=== PATIENT | female | born 1970 | race Asian ===

== ENCOUNTER → 2016-11-15 | Outpatient (CLI) | payer OTHER | LOC: FIMAGING 07:41 | PROVIDERS: ATTEND Obstetrics & Gynecology | DX: D25.2 Subserosal leiomyoma of uterus (principal) ==

== ENCOUNTER → 2017-07-05 | Outpatient (CLI) | payer OTHER | LOC: FIMAGING 12:38 | PROVIDERS: ATTEND Internal Medicine | DX: Z12.31 Encounter for screening mammogram for malignant neoplasm of breast (principal) | CPT/HCPCS: G0202 ==

== ENCOUNTER → 2017-07-07 | Outpatient (CLI) | payer OTHER | LOC: FIMAGING 10:13 | PROVIDERS: ATTEND Internal Medicine | DX: B18.1 Chronic viral hepatitis B without delta-agent (principal) ==

== ENCOUNTER → 2017-09-18 | Outpatient (CLI) | payer OTHER | LOC: BMCIMAGING 10:42 | PROVIDERS: ATTEND Orthopaedic Surgery Hand Surgery | DX: M19.042 Primary osteoarthritis, left hand (principal) ==

== ENCOUNTER → 2017-09-21 | Outpatient (CLI) | payer OTHER | LOC: FIMAGING 14:37 | PROVIDERS: ATTEND Obstetrics & Gynecology | DX: Z09 Encounter for follow-up examination after completed treatment for conditions other than malignant neoplasm (principal); D25.9 Leiomyoma of uterus, unspecified ==